=== PATIENT | male | born 1945 | race Asian ===

== ENCOUNTER 2018-12-01 07:41 | Day surgery (SDC) | payer MEDICARE, OTHER ==
--- NOTE | 2018-11-30 13:09 | PREOPHP ---
DATE OF ADMISSION: 12/01/2018 HISTORY OF PRESENT ILLNESS: This 73-year-old patient is admitted for elective cataract surgery of th e right eye. The patient denies prior history of eye disease or injury, but has had progressive dete rioration of vision in both eyes. Patient's systemic history is positive for hypertension and gout. CURRENT MEDICATIONS: Include: 1. Losartan. 2. Allopurinol. 3. Hydrochlorothiazide. ALLERGIES: THE PATIENT IS ALLERGIC TO SULFA. PHYSICAL EXAMINATION: The visual acuity with correction is 20/40 in both eyes. Slit lamp examinatio n reveals moderate nuclear sclerotic and central posterior subcapsular cataract changes in both eyes. Applanation tonometry is 21 mmHg in both eyes. Examination of the retina does not reveal the prese nce of any obvious macular edema or disruption of the macula pattern on OCT examination. DIAGNOSIS: Nuclear sclerotic and posterior subcapsular cataracts in both eyes. PLAN: Cataract extraction with lens implant, right eye. The risks and alternatives to the surgery h ave been discussed with the patient as well as the hope for improvement of visual acuity leading to g reater ability to perform activities of daily living. The patient understands this and agrees to pro ceed with surgery. Dictated By: STANLEY MUÑIZ/NIRANJAN Conf#: [id number] DID#: [id number]
[~2018-12-01] VITALS: Ht 162.6 cm; Wt 67.0 kg
[2018-12-01] VITALS (10 sets, daily range): BP systolic 116–150; BP diastolic 61–80; PULSE 50–60; RESP 13–31; Ht 162.6 cm; Wt 67.0 kg
[2018-12-01] MEDS ORDERED: MOXIFLOXACIN 0.5% 3 ML OPH OPER SCH (08:00)
[2018-12-01] MEDS ORDERED: CYCLOPENTOLATE/PHENYLEPH 2 ML OPH OPER SCH (08:00)
[2018-12-01] MEDS ORDERED: SOD CHLORIDE 0.9% 1,000 ML IV SCH (08:00)
[2018-12-01] MEDS ORDERED: DICLOFENAC 0.1% 2.5 ML OPH OPER SCH (08:00)
[2018-12-01] MEDS ORDERED: TROPICAMIDE 1% 15 ML OPH OPER SCH (08:00)
[2018-12-01] MEDS ORDERED: LOSA25TA12 PO (08:11)
[2018-12-01] MEDS ORDERED: ALLO100T PO (08:11)
--- NOTE | 2018-12-01 09:33 | PREAC ---
Date/Time of Note Date/Time of Note DATE: 12/01/18 TIME: 09:32 Anesthesia Eval and Record Evaluation Time Pre-Procedure Interview DATE: 12/01/18 TIME: 09:32 Age 73 Sex male NPO: 8 hrs Preoperative diagnosis right eye cataract Planned procedure right eye Cataract extraction with lens implant Past Medical History Past Medical History: Includes (gout) Cardio: HTN Surgery & Anesthesia Issues No known issue Meds Anticoagulation: No Beta Byron within 24 hr: No Reason Beta Byron not given: Pt. not on B-Byron Reported Medications Losartan Potassium* (Losartan Potassium*) 25 Mg Tablet, 25 MG PO DAILY, TAB 12/01/18 Allopurinol* (Allopurinol*) 100 Mg Tablet, 100 MG PO BID, TAB 12/01/18 Discontinued Reported Medications [None] No Conflict Check 07/30/11 Current Medications Diclofenac Sodium (Voltaren 0.1%) 1 drop Q5 MIN X 3 OPER Last administered on 12/01/18at 08:21; Admin Dose 1 DROP; Start 12/01/18 at 08:00 Tropicamide (Mydriacyl 1%) 1 drop Q5 MIN X3 OPER Last administered on 12/01/18at 08:22; Admin Dose 1 DROP; Start 12/01/18 at 08:00 Moxifloxacin HCl (Vigamox) 1 drop Q5 MIN X 3 OPER Last administered on 12/01/18at 08:21; Admin Dose 1 DROP; Start 12/01/18 at 08:00 Cyclopentolate/ Phenylephrine (Cyclomydril Oph 2 ml) 1 drop Q5 MIN X 3 OPER Last administered on 12/01/18at 08:22; Admin Dose 1 DROP; Start 12/01/18 at 08:00 Sodium Chloride 1,000 ml @ 25 mls/hr Q24H IV Last administered on 12/01/18at 08:22; Admin Dose 25 MLS/HR; Start 12/01/18 at 08:00 Meds reviewed: Yes Allergies Coded Allergies: Sulfa (Sulfonamide Antibiotics) (Verified Allergy, Intermediate, 12/01/18) Allergies Reviewed: Yes Labs/Studies Labs Reviewed: Reviewed by anesthesiologist test: N/A Pre-procedure Exam Last vitals Vital Signs Date Temp Pulse Resp B/P (MAP) Pulse Ox O2 O2 Flow FiO2 Time Delivery Rate 12/01/18 97.0 60 16 150/80 98 Room Air 08:43 (103) Airway: Adequate mouth opening, Adequate thyromental dist Mallampati: Mallampati II Teeth: Normal Lung: Normal Heart: Normal ASA Physical Status ASA physical status: 2 Emergency: None Planned Anesthetic General/MAC: Mask Planned Pain Management Parenteral pain med, Local by surgeon Pre-operative Attestations Prior to commencing anesthesia and surgery, the patient was re-evaluated, there was verification of: *The patient's identity *The results of appropriate recent lab work and preoperative vital signs *The above evaluation not changing prior to induction *Anesthetic plan, risk benefits, alternative and complications discussed with patient/family; questions answered; patient/family understands, accepts and wi shes to proceed. ANGELA DELEON MD Dec 01, 2018 09:33
[2018-12-01] MEDS ORDERED: FENTAnyl 50 MCG/ML VIAL IV PRN (10:00)
[2018-12-01] MEDS ORDERED: PROCHLORPERAZINE 10 MG INJ IV PRN (10:00)
[2018-12-01] MEDS ORDERED: HYDROmorphONE 1 MG/5 ML IV SYRINGE IV PRN (10:00)
[2018-12-01] MEDS ORDERED: DIPHENHYDRAMINE 50 MG INJ IV PRN (10:00)
[2018-12-01] MEDS ORDERED: OXYCODONE/ACETAMINOPHEN (5/325) TAB PO PRN (10:00)
[2018-12-01] MEDS ORDERED: MEPERIDINE 25 MG INJ IV PRN (10:00)
[2018-12-01] MEDS ORDERED: ONDANSETRON 4 MG INJ IV PRN (10:00)
[2018-12-01] MEDS ORDERED: CEFAZOLIN 1 GM INJ ONE (10:18)
[2018-12-01] MEDS ORDERED: LIDOCAINE 4% (MPF) 5 ML INJ ONE (10:18)
[2018-12-01] MEDS ORDERED: CARBACHOL 0.01% 1.5 ML OPH INJ ONE (10:18)
[2018-12-01] MEDS ORDERED: DEXAMETHASONE 4 MG/ML 1 ML INJ ONE (10:18)
[2018-12-01] MEDS ORDERED: NA HYALURONATE/CHONDROITIN 0.5 ML SYG ONE (10:18)
[2018-12-01] MEDS ORDERED: MIDAZOLAM 1 MG/ML 2 ML INJ ONE (10:30)
[2018-12-01] MEDS ORDERED: FENTAnyl 50 MCG/ML VIAL ONE (10:38)
[2018-12-01] MEDS ORDERED: LIDOCAINE 2% (SDV) 5 ML INJ ONE (10:38)
[2018-12-01] MEDS ORDERED: PROPOFOL 20 ML ONE (10:38)
--- NOTE | 2018-12-01 11:18 | SIPON ---
Date/Time of Note Date/Time of Note DATE: 12/01/18 TIME: 11:17 Operative Report Preoperative Diagnosis cortical & nuclear sclerotic cataract od Postoperative Diagnosis same Operation/Procedure Performed cataract extraction with lens implant od Surgeon stanley aparicio engineering assistant none Anesthesia: MAC Estimated blood loss: none Transfusion Required none Specimen none Grafts/Implants posterior chamber lens implant Complications none STANLEY APARICIO MD Dec 01, 2018 11:18
--- NOTE | 2018-12-01 11:21 | PAC ---
Date/Time of Note Date/Time of Note DATE: 12/01/18 TIME: 11:20 Post-Anesthesia Notes Post-Anesthesia Note Last documented vital signs Vital Signs Date Temp Pulse Resp B/P (MAP) Pulse Ox O2 O2 Flow FiO2 Time Delivery Rate 12/01/18 97.0 60 16 150/80 98 Room Air 08:43 (103) Activity: WNL Respiratory function: WNL Cardiovascular function: WNL Mental status: Baseline Pain reasonably controlled: Yes Hydration appropriate: Yes Nausea/Vomiting absent: Yes Comments BP: 136/80 HR: 60 RR: 15 T: 97.5 SaO2: 100% ANGELA DELEON MD Dec 01, 2018 11:21
--- NOTE | 2018-12-01 12:43 | OPR ---
DATE OF OPERATION: 12/01/2018 PREOPERATIVE DIAGNOSIS: Nuclear sclerotic and cortical cataract, right eye. POSTOPERATIVE DIAGNOSIS: Nuclear sclerotic and cortical cataract, right eye. OPERATION PERFORMED: Cataract extraction with lens implant, right eye. SURGEON: Stanley Zheng MD ANESTHESIA: Dr. Siddiqui. OPERATION: Phacoemulsification with posterior chamber intraocular lens implant, right eye. PROCEDURE: The patient was brought to the operating room and placed on the table with an IV in place and the patient attached to an hall monitor. Oxygen was given via face mask. After some intravenous sedation was administered, local anesthesia was given using Xylocaine 2% with epinephrine, mixed with Marcaine 0.5%. This was given in a lid block and retrobulbar injection. The p atient was then prepped and draped in the usual sterile manner. A wire lid speculum was inserted between the lids of the right eye. A Superblade was used to enter th e anterior chamber at the corneoscleral limbus at the 10:30 o'clock position. A separate incision was made using a 3.0-mm keratome which entered the corneoscleral junction at the 12 o'clock position. Th rough this 3-mm opening, an irrigating cystotome was introduced into the anterior chamber. The chambe r was filled with Viscoat and an anterior capsulotomy was performed. Balanced salt solution was then used for hydrodissection of the lens. A phacoemulsification handpiece was then brought into the fiel d and introduced into the anterior chamber. The lens nucleus was emulsified using a deep groove and c racking the nucleus into quadrants. Following this, each quadrant was aspirated and emulsified at the pupillary margin. After this was completed, the irrigation/aspiration handpiece was brought to the field, introduced in to the posterior chamber, and the lens cortical material was removed. When this was completed, additi onal Viscoat was injected into the anterior and posterior chambers. The 3-mm opening had its internal lips enlarged, and then the posterior chamber intraocular lens yobani uring 21.0 diopters posterior chamber intraocular lens ([employer] Model LI61AO) was then injected into the posterior chamber using the lens injector system. After the leading haptic wa s introduced into the capsular bag and the lens optic was present in the center of the eye, the injec tor was removed and the trailing haptic was grasped with non-toothed forceps and introduced into the capsular fold superiorly. A [place] hook was then used to rotate the intraocular lens so that the lip s were oriented in the horizontal meridian. One 10-0 nylon suture was placed across the wound. Prior to tying, the irrigation/aspiration handpiece was reintroduced into the anterior chamber to rem ove the Viscoat. Miochol was instilled to constrict the pupil, and then the 10-0 nylon suture was tie d. The ends were cut short and then the knot was buried. Then, 0.5 mL of dexamethasone and 0.5 mL of Ancef were injected into the sub-Tenon space in the infer ior fornix. Ciloxan drops were then placed on the surface of the eye. The speculum was removed and a patch was applied. The patient then left the operating room in satisfactory condition. Dictated By: STANLEY MUÑIZ/NIRANJAN Conf#: [id number] DID#: [id number]
== END 2018-12-01 12:24 | disposition home or self-care (01) ==
LOC: SDS 07:41
PROVIDERS: ATTEND Ophthalmology
DX: H25.11 Age-related nuclear cataract, right eye (principal); I10 Essential (primary) hypertension; E78.5 Hyperlipidemia, unspecified; N52.9 Male erectile dysfunction, unspecified; Z88.2 Allergy status to sulfonamides
CPT/HCPCS: 66984; J0690; J1100; J2250; J3010; V2632

== ENCOUNTER 2019-01-12 06:00 | Day surgery (SDC) | payer MEDICARE, OTHER ==
--- NOTE | 2019-01-11 14:22 | PREOPHP ---
DATE OF ADMISSION: 01/12/2019 HISTORY OF PRESENT ILLNESS: A 73-year-old man is admitted for elective cataract surgery of the left eye. The patient has had a previous history of cataract surgery 1 month ago with good visual result. The patient has no prior history of eye disease or injury. The patient does have a positive histor y for hypertension and gout. CURRENT MEDICATIONS: Includes: 1. Losartan. 2. Allopurinol. 3. Hydrothiazide. ALLERGIES: PATIENT IS ALLERGIC TO SULFA. PHYSICAL EXAMINATION: The visual acuity with correction is 20/25 in the right eye and 20/50 in the l eft eye. Slit lamp examination reveals a posterior chamber intraocular lens in appropriate position in the right eye and a nuclear sclerotic and posterior subcapsular cataract in the left eye. Applana tion tonometry is 20 mmHg in both eyes. Examination of the retina is within normal limits. DIAGNOSIS: Nuclear sclerotic and posterior subcapsular cataract, left eye. PLAN: Cataract extraction with lens implant, left eye. The risks and alternatives to the surgery mahoney ve been discussed with the patient as well as the hope for improvement of visual acuity leading to gr eater ability to perform activities of daily living. Dictated By: STANLEY MUÑIZ/NIRANJAN Conf#: [id number] DID#: [id number]
[2019-01-12] VITALS (9 sets, daily range): BP systolic 110–154; BP diastolic 63–78; PULSE 52–58; RESP 16–24; Ht 162.6 cm; Wt 65.7 kg
[~2019-01-12] VITALS: Ht 162.6 cm; Wt 65.7 kg
[~2019-01-12 06:00] MED LIST: ALLO100T PO; LOSA25TA12 PO
[2019-01-12] MEDS ORDERED: CEFAZOLIN 1 GM INJ ONE (06:42)
[2019-01-12] MEDS ORDERED: NA HYALURONATE/CHONDROITIN 0.5 ML SYG ONE (06:43)
[2019-01-12] MEDS ORDERED: TETRACAINE 0.5% 4 ML OPH ONE (06:43)
[2019-01-12] MEDS ORDERED: CARBACHOL 0.01% 1.5 ML OPH INJ ONE (06:43)
[2019-01-12] MEDS ORDERED: EPINEPHrine 1 MG INJ ONE (06:43)
[2019-01-12] MEDS ORDERED: DEXAMETHASONE 4 MG/ML 1 ML INJ ONE (06:43)
[2019-01-12] MEDS ORDERED: GENTAMICIN 80 MG INJ ONE (06:43)
[2019-01-12] MEDS ORDERED: LIDOCAINE 4% (MPF) 5 ML INJ ONE (06:43)
[2019-01-12] MEDS ORDERED: MOXIFLOXACIN 0.5% 3 ML OPH OPER SCH (07:00)
[2019-01-12] MEDS ORDERED: TROPICAMIDE 1% 15 ML OPH OPER SCH (07:00)
[2019-01-12] MEDS ORDERED: CYCLOPENTOLATE/PHENYLEPH 2 ML OPH OPER SCH (07:00)
[2019-01-12] MEDS ORDERED: DICLOFENAC 0.1% 2.5 ML OPH OPER SCH (07:00)
[2019-01-12] MEDS ORDERED: SOD CHLORIDE 0.9% 1,000 ML IV SCH (07:00)
--- NOTE | 2019-01-12 07:14 | PREAC ---
Date/Time of Note Date/Time of Note DATE: 01/12/19 TIME: 07:13 Anesthesia Eval and Record Evaluation Time Pre-Procedure Interview DATE: 01/12/19 TIME: 07:13 Age 73 Sex male NPO: 8 hrs Preoperative diagnosis OS Cataract Planned procedure OS CE with IOL Past Medical History Past Medical History: Includes Cardio: HTN, Dyslipidemia Renal: Other (gout) Surgery & Anesthesia Issues No known issue Meds Anticoagulation: No Beta Byron within 24 hr: No Reason Beta Byron not given: Pt. not on B-Byron Reported Medications Losartan Potassium* (Losartan Potassium*) 25 Mg Tablet, 25 MG PO DAILY, TAB 12/01/18 Allopurinol* (Allopurinol*) 100 Mg Tablet, 100 MG PO BID, TAB 12/01/18 Current Medications Diclofenac Sodium (Voltaren 0.1%) 1 drop Q5 MIN X 3 OPER Last administered on 01/12/19at 06:36; Admin Dose 1 DROP; Start 01/12/19 at 07:00 Tropicamide (Mydriacyl 1%) 1 drop Q5 MIN X3 OPER Last administered on 01/12/19at 06:37; Admin Dose 1 DROP; Start 01/12/19 at 07:00 Moxifloxacin HCl (Vigamox) 1 drop Q5 MIN X 3 OPER Last administered on 01/12/19at 06:37; Admin Dose 1 DROP; Start 01/12/19 at 07:00 Cyclopentolate/ Phenylephrine (Cyclomydril Oph 2 ml) 1 drop Q5 MIN X 3 OPER Last administered on 01/12/19at 06:37; Admin Dose 1 DROP; Start 01/12/19 at 07:00 Sodium Chloride 1,000 ml @ 25 mls/hr Q24H IV Last administered on 01/12/19at 06:44; Admin Dose 25 MLS/HR; Start 01/12/19 at 07:00 Meds reviewed: Yes Allergies Coded Allergies: Sulfa (Sulfonamide Antibiotics) (Verified Allergy, Intermediate, 01/12/19) Allergies Reviewed: Yes Labs/Studies Labs Reviewed: Reviewed by anesthesiologist test: N/A Studies: ECG (SR), CXR (NAD) Pre-procedure Exam Last vitals Vital Signs Date Temp Pulse Resp B/P (MAP) Pulse Ox O2 O2 Flow FiO2 Time Delivery Rate 01/12/19 97.8 56 16 154/77 99 Room Air 07:01 (102) Airway: Adequate mouth opening, Adequate thyromental dist Mallampati: Mallampati III Teeth: Abnormal (partials removed) Lung: Normal Heart: Normal ASA Physical Status ASA physical status: 2 Emergency: None Planned Anesthetic General/MAC: MAC Pre-operative Attestations Prior to commencing anesthesia and surgery, the patient was re-evaluated, there was verification of: *The patient's identity *The results of appropriate recent lab work and preoperative vital signs *The above evaluation not changing prior to induction *Anesthetic plan, risk benefits, alternative and complications discussed with patient/family; questions answered; patient/family understands, accepts and wishes to proceed. BARB DOYLE CRNA Jan 12, 2019 07:14
[2019-01-12] MEDS ORDERED: FENTAnyl 50 MCG/ML VIAL ONE (07:16)
[2019-01-12] MEDS ORDERED: MIDAZOLAM 1 MG/ML 2 ML INJ ONE (07:16)
[2019-01-12] MEDS ORDERED: ONDANSETRON 4 MG INJ IV PRN (07:30)
[2019-01-12] MEDS ORDERED: FENTAnyl 50 MCG/ML VIAL IV PRN ×2 (07:30)
[2019-01-12] MEDS ORDERED: LABETALOL HCL 20MG INJ IV PRN (07:30)
[2019-01-12] MEDS ORDERED: OXYCODONE/ACETAMINOPHEN (5/325) TAB PO PRN ×2 (07:30)
[2019-01-12] MEDS ORDERED: PROPOFOL 20 ML ONE (07:44)
[2019-01-12] MEDS ORDERED: LIDOCAINE 2% (SDV) 5 ML INJ ONE (07:44)
--- NOTE | 2019-01-12 08:19 | SIPON ---
Date/Time of Note Date/Time of Note DATE: 01/12/19 TIME: 08:17 Operative Report Preoperative Diagnosis nuclear sclerotic & posterior subcapsular cataract os Postoperative Diagnosis same Operation/Procedure Performed cataract extraction with lens implant os Surgeon stanley aparicio personal banking assistant none Anesthesia: MAC Estimated blood loss: none Transfusion Required none Specimen none Grafts/Implants posterior chamber lens implant Complications none STANLEY APARICIO MD Jan 12, 2019 08:19
--- NOTE | 2019-01-12 08:20 | PAC ---
Date/Time of Note Date/Time of Note DATE: 01/12/19 TIME: 08:19 Post-Anesthesia Notes Post-Anesthesia Note Last documented vital signs 127/80, 97%, 55, 13 Vital Signs Date Temp Pulse Resp B/P (MAP) Pulse Ox O2 O2 Flow FiO2 Time Delivery Rate 01/12/19 97.8 56 16 154/77 99 Room Air 07:01 (102) Activity: WNL Respiratory function: WNL Cardiovascular function: WNL Mental status: Baseline Pain reasonably controlled: Yes Hydration appropriate: Yes Nausea/Vomiting absent: Yes BARB DOYLE CRNA Jan 12, 2019 08:20
--- NOTE | 2019-01-12 08:56 | OPR ---
DATE OF OPERATION: 01/12/2019 PREOPERATIVE DIAGNOSES: Nuclear sclerotic and posterior subcapsular cataract, left eye. POSTOPERATIVE DIAGNOSES: Nuclear sclerotic and posterior subcapsular cataract, left eye. OPERATION PERFORMED: Cataract extraction with lens implant, left eye. SURGEON: Stanley Zheng M.D. ANESTHESIOLOGIST: Eleno Todd CRNA. ANESTHESIA: Local standby. PROCEDURE: The patient was brought to the operating room and placed on the table with an IV in place and the patient attached to an vehicle monitor technician. Oxygen was given via face mask. After some intravenous sedation was administered, local anesthesia was given using Xylocaine 2% with epinephrine, mixed with Marcaine 0.5%. This was given in a lid block and retrobulbar injection. The patient was then prepped and draped in the usual sterile manner. A wire lid speculum was inserted between the lids of the left eye. A Superblade was used to enter th e anterior chamber at the corneoscleral limbus at the 10:30 o'clock position. A separate incision wa s made using a 3.0-mm keratome which entered the corneoscleral junction at the 12 o'clock position. Through this 3-mm opening, an irrigating cystotome was introduced into the anterior chamber. The brisa mber was filled with Viscoat and an anterior capsulotomy was performed. Balanced salt solution was t hen used for hydrodissection of the lens. A phacoemulsification handpiece was then brought into the field and introduced into the anterior chamber. The lens nucleus was emulsified using a deep groove and cracking the nucleus into quadrants. Following this, each quadrant was aspirated and emulsified at the pupillary margin. After this was completed, the irrigation/aspiration handpiece was brought to the field, introduced in to the posterior chamber, and the lens cortical material was removed. When this was completed, addit ional Viscoat was injected into the anterior and posterior chambers. The 3-mm opening had its internal lips enlarged, and then the posterior chamber intraocular lens yobani uring 21.0 diopters ([employer] Model LI61AO) was then injected into the posterior c hamber using the lens injector system. After the leading haptic was introduced into the capsular bag and the lens optic was present in the center of the eye, the injector was removed and the trailing h aptic was grasped with non-toothed forceps and introduced into the capsular fold superiorly. A [place] ey hook was then used to rotate the intraocular lens so that the lips were oriented in the horizontal meridian. One 10-0 nylon suture was placed across the wound. Prior to tying, the irrigation/aspiration handpiece was reintroduced into the anterior chamber to rem ove the Viscoat. Miochol was instilled to constrict the pupil, and then the 10-0 nylon suture was ti ed. The ends were cut short and then the knot was buried. Then, 0.5 mL of dexamethasone and 0.5 mL of Ancef were injected into the sub-Tenon space in the infer ior fornix. Ciloxan drops were then placed on the surface of the eye. The speculum was removed and a patch was applied. The patient then left the operating room in satisfactory condition. Dictated By: STANLEY MUÑIZ/NIRANJAN Conf#: [id number] DID#: [id number]
== END 2019-01-12 09:30 | disposition home or self-care (01) ==
LOC: SDS 06:00
PROVIDERS: ATTEND Ophthalmology
DX: H25.12 Age-related nuclear cataract, left eye (principal); I10 Essential (primary) hypertension
CPT/HCPCS: 66984; J0171; J0690; J1100; J1580; J2250; J3010; V2632